=== PATIENT | male | born 1970 | race Caucasian/White ===

== ENCOUNTER → 2018-07-01 10:08 | Outpatient (CLI) | payer BC, SELFPAY ==
[2018-07-01 11:26] LABS: Ferritin 70 ng/mL (26-388); T4 Free Direct 0.82 ng/dL (0.76-1.46); Thyroid Stim Hormone (TSH) 1.28 uIU/mL (0.358-3.74)
[2018-07-01 11:37] LABS: Vitamin D,25 Hydroxy 81.7 ng/mL (29.95-100.01)
== END ==
PROVIDERS: Family Provider Family Medicine; PCP Family Medicine; Referring Provider Family Medicine; Visit Provider Family Medicine
DX: E03.9 Hypothyroidism, unspecified (principal); E55.9 Vitamin D deficiency, unspecified
CPT/HCPCS: 36415; 82306; 82728; 84439; 84443

== ENCOUNTER → 2019-03-23 09:30 | Outpatient (CLI) | payer BC, SELFPAY ==
[2019-03-23 10:18] LABS: Hematocrit 46.6 % (40-54); Hemoglobin 15.9 g/dL (13.0-16.5); Mean Corp Hgb Conc 34.1 g/dL (32-36); Mean Corpuscular Hgb 31.7 pg (27.0-32.0); Mean Corpuscular Volume 92.8 fL (80-94); Mean Platelet Vol. 9.2 fl (6.2-12.0); Platelet Count 185 K/mm3 (150-450); RBC Distribution Width CV 12.4 % (11.6-14.6); RBC Distribution Width SD 42.5 fl (35.1-43.9); Red Blood Count 5.02 M/mm3 (4.6-6.2); White Blood Count 5.4 K/mm3 (4.4-11.0)
[2019-03-23 11:06] LABS: ALB/GLOB Ratio 1.3 RATIO (0.9-2.4); AST(SGOT) 16 U/L (15-37); Alanine Aminotransfer ALT/SGPT 26 U/L (16-61); Albumin, Serum 3.9 g/dL (3.2-5.0); Alkaline Phosphatase 67 U/L (45-117); Anion Gap 3 (5-15); BUN 18 mg/dL (7-18); BUN/Creat Ratio 18.2 RATIO (10-20); Calcium,Total 9.3 mg/dL (8.5-10.1); Chloride 108 mmol/L (98-107); Creatinine, Serum 0.99 mg/dL (0.70-1.30); EST Glomerular Filtration Rate 85 mL/min (>60); Est Glom Filt Rate - Afr Amer 103 mL/min (>60); Free T3 2.4 pg/mL (2.18-3.98); Globulin 3.1 g/dL (2.2-4.2); Glucose 91 mg/dL (74-106); Potassium 3.9 mmol/L (3.5-5.1); Sodium Level 140 mmol/L (136-145); T4 Free Direct 0.79 ng/dL (0.76-1.46); Thyroid Stim Hormone (TSH) 1.29 uIU/mL (0.358-3.74)
== END ==
PROVIDERS: Family Provider Family Medicine; PCP Family Medicine; Referring Provider Family Medicine; Visit Provider Family Medicine
DX: R55 Syncope and collapse (principal)
CPT/HCPCS: 36415; 80053; 83735; 84439; 84443; 84481; 85027

== ENCOUNTER → 2019-04-09 07:23 | Outpatient (CLI) | payer BC, SELFPAY ==
--- NOTE | 2019-04-09 15:33 | EEG ---
- Electroencephalogram Date of service 04/09/2019 History EEG is being done in this 48 yr M to rule out seizures EEG Description: This is an 18 channel EEG with 10-20 lead placement system. Bipolar montages, and Referential montages were reviewed. Photic stimulation and Hyperventilation were performed. The posterior dominant rhythm is 10 HZ synchronous, symmetric, reacting to eye opening and closing. Photo stimulation elicited normal driving response but no abnormal photoparoxysmal response, Hyperventilation did not elicit any abnormal photoparoxysmal response. Sleep was identified. There is no abnormal background slowing noted. There was no epileptiform discharges or electrographic seizures noted during this recording. EEG Interpretation This is a normal awake and asleep EEG. There is no epileptiform discharges or electrographic seizures noted during the record.
== END ==
PROVIDERS: Family Provider Family Medicine; PCP Family Medicine; Referring Provider Family Medicine; Visit Provider Family Medicine
DX: R55 Syncope and collapse (principal)
CPT/HCPCS: 95819

== ENCOUNTER → 2019-07-12 13:39 | Outpatient (CLI) | payer BC, SELFPAY ==
[2019-07-12 14:45] LABS: Absolute Lymphocyte Count 1.71 X10^3/uL (0.83-4.51); Absolute Neutrophil Count 3.8 X10^3/uL (2.0-7.7); Basophil# 0.05 X10^3/uL; Basophil% 0.8 % (0-1); Eosinophil# 0.11 X10^3/uL; Eosinophils% 1.8 % (0-5); Hematocrit 48.4 % (40-54); Hemoglobin 16.1 g/dL (13.0-16.5); Lymphocyte # 1.71 X10^3/ul (4.0); Lymphocyte % 27.8 % (19-41); Mean Corp Hgb Conc 33.3 g/dL (32-36); Mean Corpuscular Hgb 31.3 pg (27.0-32.0); Monocyte# 0.48 X10^3/uL; Monocyte% 7.8 % (0-10); NRBC Flagged by Analyzer 0 % (0-5); Neutrophil # 3.79 X10^3/uL (2.7-7.7); Neutrophil % 61.5 % (47-70); Platelet Count 203 K/mm3 (150-450); RBC Distribution Width CV 12.5 % (11.6-14.6); RBC Distribution Width SD 43.8 fl (35.1-43.9); Red Blood Count 5.15 M/mm3 (4.6-6.2); White Blood Count 6.2 K/mm3 (4.4-11.0)
[2019-07-12 15:41] LABS: ALB/GLOB Ratio 1.4 RATIO (0.9-2.4); AST(SGOT) 11 U/L (15-37); Alanine Aminotransfer ALT/SGPT 27 U/L (16-61); Albumin, Serum 4.2 g/dL (3.2-5.0); Alkaline Phosphatase 73 U/L (45-117); Anion Gap 6 (5-15); BUN 11 mg/dL (7-18); BUN/Creat Ratio 12.4 RATIO (10-20); Calcium,Total 9.1 mg/dL (8.5-10.1); Chloride 106 mmol/L (98-107); Cholesterol 237 mg/dL (200); Creatinine, Serum 0.89 mg/dL (0.70-1.30); EST Glomerular Filtration Rate 96 mL/min (>60); Est Glom Filt Rate - Afr Amer 116 mL/min (>60); Free T3 2.7 pg/mL (2.18-3.98); Glucose 83 mg/dL (74-106); High Density Lipoprotein 34 mg/dL; Magnesium 2.1 mg/dL (1.6-2.6); Potassium 3.9 mmol/L (3.5-5.1); Protein, Total 7.2 g/dL (6.4-8.2); Sodium Level 141 mmol/L (136-145); T4 Free Direct 1.07 ng/dL (0.76-1.46); Thyroid Stim Hormone (TSH) 3.66 uIU/mL (0.358-3.74); Triglycerides 257 mg/dL; Very Low Density Lipoprotein 51 mg/dL (5-40)
[2019-07-16 20:13] LABS: Anti-Thyroglobulin AB < 1.0 IU/mL (0.0-0.9); Thyroid Peroxidase AB 13 IU/mL (0-34)
== END ==
PROVIDERS: Family Provider Family Medicine; PCP Family Medicine; Referring Provider Family Medicine; Visit Provider Family Medicine
DX: E03.9 Hypothyroidism, unspecified (principal); I20.1 Angina pectoris with documented spasm
CPT/HCPCS: 36415; 80053; 80061; 83735; 84432; 84439; 84443; 84481; 85025; 86376; 86800

== ENCOUNTER → 2019-08-21 06:20 | Outpatient (CLI) | payer BC, SELFPAY ==
[2019-08-21 08:23] LABS: Thyroid Stim Hormone (TSH) 3.63 uIU/mL (0.358-3.74)
== END ==
PROVIDERS: Family Provider Family Medicine; PCP Family Medicine; Referring Provider Family Medicine; Visit Provider Family Medicine
DX: E03.9 Hypothyroidism, unspecified (principal)
CPT/HCPCS: 36415; 84443

== ENCOUNTER → 2021-03-27 08:06 | Outpatient (CLI) | payer BC, SELFPAY ==
[2021-03-27 08:44] LABS: Absolute Lymphocyte Count 1.54 X10^3/uL (0.83-4.51); Absolute Neutrophil Count 2.5 X10^3/uL (2.0-7.7); Basophil# 0.04 X10^3/uL; Basophil% 0.9 % (0-1); Eosinophil# 0.08 X10^3/uL; Eosinophils% 1.8 % (0-5); Hematocrit 46.9 % (40-54); Hemoglobin 15.8 g/dL (13.0-16.5); Lymphocyte # 1.54 X10^3/ul (0.83-4.51); Lymphocyte % 34.3 % (19-41); Mean Corp Hgb Conc 33.7 g/dL (32-36); Mean Corpuscular Volume 92.1 fL (80-94); Mean Platelet Vol. 9.1 fl (6.2-12.0); Monocyte# 0.33 X10^3/uL; Monocyte% 7.3 % (0-10); NRBC Flagged by Analyzer 0 % (0-5); Neutrophil % 55.7 % (47-70); Platelet Count 194 K/mm3 (150-450); RBC Distribution Width CV 12.6 % (11.6-14.6); RBC Distribution Width SD 42.9 fl (35.1-43.9); Red Blood Count 5.09 M/mm3 (4.6-6.2); White Blood Count 4.5 K/mm3 (4.4-11.0)
[2021-03-27 09:01] LABS: Fibrinogen 289 mg/dl (203-444)
[2021-03-27 09:11] LABS: Insulin 6.1 mU/L (2.6-37.6); T3 Total - Triiodothyronine 0.79 ng/mL (0.6-1.81); Vitamin B12 549 pg/mL (211-911)
[2021-03-27 09:14] LABS: Hemoglobin A1c 5.2 % (3.8-5.6)
[2021-03-27 09:47] LABS: Homocysteine 10.2 umol/L (3.2-10.7)
[2021-03-27 09:54] LABS: ALB/GLOB Ratio 1.3 RATIO (0.9-2.4); AST(SGOT) 20 U/L (15-37); Alanine Aminotransfer ALT/SGPT 47 U/L (16-61); Albumin, Serum 3.9 g/dL (3.2-5.0); Alkaline Phosphatase 83 U/L (45-117); Anion Gap 5 (5-15); BUN 19 mg/dL (7-18); BUN/Creat Ratio 21.1 RATIO (10-20); CRP < 2.90 mg/L (0.0-3.0); Calcium,Total 8.6 mg/dL (8.5-10.1); Chloride 107 mmol/L (98-107); EST Glomerular Filtration Rate 94 mL/min (>60); Est Glom Filt Rate - Afr Amer 114 mL/min (>60); Free T3 2.2 pg/mL (2.18-3.98); Globulin 2.9 g/dL (2.2-4.2); Glucose 98 mg/dL (74-106); Protein, Total 6.8 g/dL (6.4-8.2); Sodium Level 141 mmol/L (136-145); T4 Free Direct 0.97 ng/dL (0.76-1.46); T4 Total, Thyroxin 7.2 ug/dL (4.5-12.1); Thyroid Stim Hormone (TSH) 2.55 uIU/mL (0.358-3.74)
[2021-03-31 13:40] LABS: T3 Reverse 23.6 ng/dL (9.2-24.1); Thyroglobulin Antibody < 1.0 IU/mL (0.0-0.9); Thyroid Peroxidase AB 11 IU/mL (0-34)
== END ==
PROVIDERS: PCP Family Medicine
DX: E03.9 Hypothyroidism, unspecified (principal); I20.1 Angina pectoris with documented spasm; E88.81 Metabolic syndrome and other insulin resistance; E78.5 Hyperlipidemia, unspecified; G47.00 Insomnia, unspecified
CPT/HCPCS: 36415; 80053; 80061; 82306; 82607; 82746; 83036; 83090; 83525; 83704; 83921; 84436; 84439; 84443; 84480; 84481; 84482; 85025; 85384; 86140; 86376; 86800

== ENCOUNTER → 2021-04-11 06:54 | Outpatient (CLI) | payer BC, SELFPAY ==
[2021-04-11 07:57] LABS: AST(SGOT) 17 U/L (15-37); Alanine Aminotransfer ALT/SGPT 37 U/L (16-61); GGTP 19 U/L (15-85); LDH 112 U/L (87-241)
== END ==
PROVIDERS: PCP Family Medicine
DX: E78.2 Mixed hyperlipidemia (principal); I20.1 Angina pectoris with documented spasm; R94.5 Abnormal results of liver function studies
CPT/HCPCS: 36415; 82977; 83615; 84450; 84460

== ENCOUNTER → 2023-01-27 | Outpatient (CLI) | payer BC, SELFPAY ==
[2023-01-27 16:14] LABS: Creatinine, Serum 0.96 mg/dL (0.70-1.30); EST Glomerular Filtration Rate 87 mL/min (>60); Est Glom Filt Rate - Afr Amer 106 mL/min (>60); Thyroid Stim Hormone (TSH) 2.88 uIU/mL (0.358-3.74)
== END | disposition home or self-care (01) ==
LOC: LAB 14:24
PROVIDERS: PCP Family Medicine; Visit Provider Family Medicine
DX: E03.9 Hypothyroidism, unspecified (principal); I20.1 Angina pectoris with documented spasm
CPT/HCPCS: 36415; 82565; 84439; 84443

== ENCOUNTER → 2023-07-27 | Outpatient (CLI) | payer BC, SELFPAY ==
--- NOTE | 2023-07-27 07:57 | CDU_ITS ---
Reason For Study: ANGINA PECTORIS W/documented spasm Rt. Velocities/BP Lt. Velocities/BP Prox CCA 100.2/24.1 cm/sec. Prox CCA 139.9/26.7 cm/sec. Mid CCA 108.8/24.1 cm/sec. Mid CCA 97.9/30.3 cm/sec. Dist CCA 105.1/29.0 cm/sec. Dist CCA 94.2/28.5 cm/sec. Prox ICA 87.9/30.2 cm/sec. Prox ICA 57.4/16.4 cm/sec. Mid ICA 80.6/14.2 cm/sec. Mid ICA 84.4/32.2 cm/sec. Dist ICA 80.6/14.2 cm/sec. Dist ICA 50.8/21.6 cm/sec. Rt. ICA/CCA = 87.9/108.8=0.8. Lt. ICA/CCA = 84.4/97.9=0.9. Prox ECA 100.2/13.0 cm/sec. Prox ECA 60.0/12.7 cm/sec. Rt. Vert. 31.2/11.5 cm/sec. Lt. Vert. 50.4/21.9 cm/sec. Right Extracranial There is no significant atherosclerotic plaque noted in the right common carotid artery. There is intimal thickening but no significant atherosclerotic plaque noted in the right internal carotid artery. There is no significant atherosclerotic plaque noted in the right external carotid artery. Antegrade flow is noted in the right vertebral artery. Left Extracranial There is intimal thickening but no significant atherosclerotic plaque noted in the left common carotid artery. There is intimal thickening but no significant atherosclerotic plaque noted in the left internal carotid artery. There is homogeneous, smooth atherosclerotic plaque noted in the left external carotid artery. Antegrade flow is noted in the left vertebral artery. Procedure Carotid Duplex [id number]. This is a Carotid Duplex examination using B-mode, color flow and specral Doppler. The study was technically difficult. Due to HIGH BIFURCATION. Exam performed in department. VL/Carotid Duplex Ultrasound Interpretation Summary No significant atherosclerotic plaque or stenosis noted in the internal carotid arteries bilaterally. Flow within the vertebral arteries is antegrade bilaterally. Ordering Physician: Zulma Fernandez Referring Physician: Se Long Performed By: Domi Silva, GAGE, RVT
== END | disposition home or self-care (01) ==
LOC: CVS 07:56
PROVIDERS: PCP Family Medicine; Referring Provider Nurse Practitioner Family; Visit Provider Nurse Practitioner Family
DX: I20.1 Angina pectoris with documented spasm (principal)
CPT/HCPCS: 93880

== ENCOUNTER → 2024-09-06 | Outpatient (CLI) | payer BC, SELFPAY ==
[2024-09-06 10:57] LABS: Bacteria 0 SEEN /hpf (None Seen); Mucous, Urine 0 SEEN /hpf (<or=2+); Red Blood Cells-Urine 0 SEEN /hpf (0-5); Squamous Epithelial Cells - UA 0 SEEN /hpf (0-5); White Blood Cells 0 SEEN /hpf (0-5)
[2024-09-06 12:49] LABS: Syphilis Antibodies Non-reactive
[2024-09-06 13:02] LABS: Color, Urine Yellow (Yellow); Glucose, Dipstick Normal (Normal); Ketone-Dipstick Negative (Negative); Leukocyte Esterase-Dipstick 25 /ul (Negative); Nitrite-Dipstick Negative (Negative); Occult Blood-Urine Negative /ul (Negative); Protein-Dipstick 15 mg/dl (Negative); Specific Gravity, Urine 1.015 (1.002-1.030); Urine Bilirubin Dipstick Negative (Negative); Urine Clarity Clear (Clear); Urine Urobilinogen Normal (Normal)
[2024-09-07 12:08] LABS: ANTINUCLEAR ANTIBODIES DIRECT Negative (Negative)
[2024-09-07 14:08] LABS: Lyme Scn Total Ab w/Rflx Negative (Negative)
== END | disposition home or self-care (01) ==
LOC: MFPLAB 10:47
PROVIDERS: PCP Family Medicine; Referring Provider Family Medicine; Visit Provider Family Medicine
DX: L50.9 Urticaria, unspecified (principal)
CPT/HCPCS: 36415; 81001; 86038; 86140; 86618; 86780; 87086

== ENCOUNTER 2025-01-06 22:59 | Observation (INO) | payer BC, SELFPAY ==
[2025-01-06] VITALS (10 sets, daily range): BP systolic 109–131; BP diastolic 75–108; PULSE 56–67; RESP 13–26; TEMP 36.6; O2SAT 90–100; BMI 34.0
--- NOTE | 2025-01-06 23:09 | EKG12_ITS ---
Test Reason : CP Blood Pressure : */* mmHG Vent. Rate : 58 BPM Atrial Rate : 58 BPM P-R Int : 140 ms QRS Dur : 84 ms QT Int : 412 ms P-R-T Axes : 5 -11 51 degrees QTcB Int : 404 ms Sinus bradycardia Minimal voltage criteria for LVH, may be normal variant ( R in aVL ) Nonspecific ST abnormality Abnormal ECG Confirmed by Vladimir Bianchi ([id number]), web content editor GRAY OTTO ([id number]) on 01/07/2025 9:25:56 AM Referred By: BB Confirmed By: Vladimir Bianchi
[2025-01-06 23:18] LABS: Absolute Lymphocyte Count 3.69 X10^3/uL (0.83-4.51); Absolute Neutrophil Count 3.3 X10^3/uL (2.0-7.7); Basophil# 0.08 X10^3/uL; Eosinophil# 0.26 X10^3/uL; Eosinophils% 3.2 % (0-5); Hematocrit 47.3 % (40-54); Hemoglobin 16.1 g/dL (13.0-16.5); Lymphocyte # 3.69 X10^3/ul (0.83-4.51); Lymphocyte % 45.4 % (19-41); Mean Corpuscular Hgb 30.8 pg (27.0-32.0); Mean Corpuscular Volume 90.4 fL (80-94); Mean Platelet Vol. 9.3 fl (6.2-12.0); Monocyte# 0.78 X10^3/uL; Monocyte% 9.6 % (0-10); NRBC Flagged by Analyzer 0 % (0-5); Neutrophil % 40.6 % (47-70); Platelet Count 235 K/mm3 (150-450); RBC Distribution Width CV 12.8 % (11.6-14.6); RBC Distribution Width SD 42.2 fl (35.1-43.9); Red Blood Count 5.23 M/mm3 (4.6-6.2); White Blood Count 8.1 K/mm3 (4.4-11.0)
--- NOTE | 2025-01-06 23:19 | ED.VIS.CHEST ---
HPI History of Present Illness Chief Complaint: Chest Pain Informant: patient and spouse/S.O. Onset/Context/Timing Onset: Today Activity at onset: gradual and rest Timing: Continuous Quality: Positive for Heaviness and Pain Location: Substernal Current Severity: Mild Maximum Severity: Severe Worsened By: Nothing Relieved By: NTG Associated Symptoms: Positive for Nausea, Diaphoresis and Palpitations Narrative Narrative: 54-year-old male history of Prinzmetal's angina. Heart cath in 2010 he states was clean. Most recent heart cath in 2018 only a 10% blockage in the right coronary. He states she has had 3 episodes of chest pain in the last 2 weeks first 1 to 2 weeks ago when that bad it was at rest second 1 a week ago lasted about 40 minutes and was more severe and then tonight he has had severe chest pain lasting over an hour. He took 4 baby aspirin at home. 3 sublingual nitro with only mild to moderate improvement. He still having pain. He did get diaphoretic. He is nauseated. A week ago he had nausea and vomiting. Denies any exertional dyspnea or exertional chest pain. Said on his heart cath in 2018 they did find minor cardiac damage. No history of DVT or PE. No leg pain or swelling. No recent travel, surgery or immobilization. No back pain. Prior Similar Symptoms: Yes Recent Illness/Hospitalization: No CVD Risk Factors: Negative for Hypertension, Diabetes, Hypercholesterolemia, Family History 1' </=55 or Smoking PE Risk Factors: Negative for Recent Travel/Surgery, Recent Immobilization, Prior DVT or PE, Cancer or OCP + Smoking + >/=35 TAD Risk Factors: Negative for Marfan's Syndrome [facility] Medical History (Updated 01/07/25 @ 01:[address] Chad Lr MD) History of stress test Chest pain Irregular heart beat Coronary artery disease Wears hearing aid in both ears Hearing loss Prinzmetal angina Hypothyroidism Home Medications ?Medication ?Instructions ?Recorded ?Last Taken ?Type nitroglycerin 0.4 mg sublingual 0.4 mg sublingual Q5M PRN angina 01/06/25 Unknown History tablet Allergy/AdvReac Type Severity Reaction Status Date / Time No Known Allergies Allergy Verified 01/06/25 23:04 Surgical History (Updated 01/06/25 @ 23:37 by Racquel Long) H/O cardiac catheterization Social History Smoking Status: Never smoker ROS ROS ED ROS Narrative Chest pain at rest. Nausea. Diaphoresis. Constitutional Constitutional ED: Denies chills or fever(s) ENT ENT ED: Denies ear pain Cardiovascular Cardiovascular: Reports as per HPI, chest pain and palpitations Respiratory/Chest Respiratory/Chest: Reports dyspnea; Denies cough Gastrointestinal Gastrointestinal: Reports nausea and vomiting; Denies abdominal pain, constipation, diarrhea or melena Genitourinary Genitourinary ED: Denies dysuria or hematuria Musculoskeletal Musculoskeletal: Denies arthralgias Integumentary Denies abscess Neurologic Neurologic: Denies headache(s) Psychiatric Psychiatric: Denies anxiety Endocrine Endocrinology: Denies cold intolerance Hematologic/Lymphatic Hematologic/Lymphatic: Denies easy bleeding, easy bruising or lymphadenopathy Allergic/Immunologic Allergic/Immunologic ED: Denies tongue swelling or urticaria EXAM Physical Exam Narrative Exam Narrative: 54-year-old male vital signs are stable afebrile. He does not look septic or toxic. His pulses are present on room air no hypoxia. Initial blood pressure 124/108. He does not look septic or toxic. He is diaphoretic. He still having pain. H EENT exam pupils round reactive light. moist mucous membranes. Neck nontender no JVD. Lungs clear to auscultation bilaterally. Heart regular rhythm rate about 60 no murmur. Chest wall and ribs no reproducible pain. No ecchymosis or bruising. No subcu air or crepitus. Abdomen soft nontender. No peritoneal signs. No pulsatile mass. Moving all 4 extremities. 5 out of 5 director behavioral health strength. Equal symmetrical radial pulses. Dorsi plantarflexion intact. Calves are nontender without edema or cords. Neurologically is awake and alert. Answering questions following commands. Skin no rashes but he is diaphoretic. Const Vital Signs: 01/06/25 22:59 01/06/25 23:09 01/06/25 23:10 Temperature 97.8 F Temperature Source Oral Pulse Rate 57 L 59 L Respiratory Rate 22 H 17 Blood Pressure 124/108 H 114/91 H Blood Pressure Mean 113 98 Pulse Ox 100 94 Oxygen Delivery Method Room Air Room Air Room Air Oxygen Flow Rate (L/min) 01/06/25 23:25 01/06/25 23:31 01/06/25 23:33 Temperature Temperature Source Pulse Rate 56 L 67 Respiratory Rate Blood Pressure 131/88 H 127/89 H Blood Pressure Mean Pulse Ox 90 Oxygen Delivery Method Room Air Oxygen Flow Rate (L/min) 01/06/25 23:33 01/06/25 23:37 01/06/25 23:40 Temperature Temperature Source Pulse Rate 62 62 Respiratory Rate 26 H Blood Pressure 120/77 Blood Pressure Mean Pulse Ox 93 92 Oxygen Delivery Method Nasal Cannula Oxygen Flow Rate (L/min) 2 01/06/25 23:45 01/06/25 23:53 01/06/25 23:53 Temperature Temperature Source Pulse Rate 64 59 L 58 L Respiratory Rate 16 20 H Blood Pressure 112/85 H 109/75 109/75 Blood Pressure Mean 93 85 Pulse Ox 91 95 Oxygen Delivery Method Nasal Cannula Oxygen Flow Rate (L/min) 2 01/06/25 23:56 01/07/25 00:00 01/07/25 00:10 Temperature Temperature Source Pulse Rate 61 56 L 56 L Respiratory Rate 13 24 H 19 H Blood Pressure 110/81 H 107/81 H 106/68 Blood Pressure Mean 90 88 80 Pulse Ox 94 93 95 Oxygen Delivery Method Nasal Cannula Nasal Cannula Oxygen Flow Rate (L/min) 2 2 01/07/25 00:20 Temperature Temperature Source Pulse Rate 61 Respiratory Rate 27 H Blood Pressure 107/80 Blood Pressure Mean 89 Pulse Ox 96 Oxygen Delivery Method Room Air Oxygen Flow Rate (L/min) Positive well nourished and well developed; Negative for cachectic, contractures or unkempt General Appearance ED: well developed and NAD; Negative for unkempt, cachectic, contractures or pallor Nutritional Appearance: Negative for cachectic HEENT Reports moist mucous membranes normocephalic and atraumatic Eyes PERRL and EOMs intact bilaterally General Eye ED: Negative for pale conjunctiva or scleral icterus Neck no lymphadenopathy, supple and no JVD Chest Wall inspection of chest normal and palpation of chest normal Resp normal respiratory effort and clear to auscultation bilaterally Cardio regular rate, regular rhythm, S1 normal heart sound, S2 normal heart sound and no murmurs Peripheral Pulses: pulses 2+ throughout GI normal to inspection, nondistended, normoactive bowel sounds, soft to palpation, non-tender, non-distended and no masses Back/Spine no CVA tenderness and no thoracic nor lumbar tenderness Extremity normal to inspection General Extremety ED: Negative for edema, pulses abnormal or tenderness General Extremity: Negative for edema or pulses abnormal Neuro oriented x3, CN's II-XII intact bilaterally and no sensory deficits noted Sensorium / Orientation: awake, alert, oriented to person, oriented to place and oriented to time; Negative for confused, lethargic or stuporous Motor Exam: strength 5/5 throughout Psych mental status grossly normal Appearance: Negative for unkempt Attitude: No agitated Mood & Affect: Negative for depressed, anxious or tearful Skin no rashes or lesions noted and no wounds Skin Narrative: Cool and diaphoretic. Pale. General Skin Exam: Negative for jaundice or pallor Rashes: No rashes noted Trauma: Negative for abrasion or laceration Heart Score History: Moderately Suspicious ECG: Normal Age: >45 - <65 years Risk Factors: 1 or 2 Risk Factors Troponin: </= Normal Limit Score: 3 MDM MDM MDM Narrative Medical decision making narrative: 54-year-old male history of Prinzmetal angina. Admitting worsening symptoms over the last 3 weeks. Always at rest. Most recent heart cath was 7+ years ago at 10% right coronary disease. He did take 3 nitroglycerin at home and 4 baby aspirin but he said his nitro was 3+ years old. He will be given nitroglycerin here. Cardiac workup. Also be given Toradol for pain. I was then giving morphine but he says with opioids his pressure drops into the 80s. Repeat exam around 23:40 PM he said the initial sublingual nitro x 3 improved his pain but is now back at a 6 out of 10. He has been given Nitropaste. Second EKG will be obtained. Repeat exam at 12:24 AM. Patient states his pain is waxing and waning. We went over his initial labs. We are awaiting a second EKG and 2-hour troponin we will go from there. He will be given small dose of fentanyl for his pain. Repeat exam patient is doing well at 1:15 AM. Second troponin returns less than 6 also. 2 troponins and 2 EKGs are negative. Repeat exam after discussing with the patient and his given his accelerating chest pain in frequency and intensity over the last 3 weeks they prefer admission for further cardiac testing I will discuss that with the hospitalist. History & Record Review Discussion w/independent historian: Patient and Family Additional record(s) reviewed:: Prior inpatient record, Prior outpatient record, Prior ED visit and Prior labs Lab Data Attestation: I reviewed the patient's lab results. Lab results narrative: CBC shows a white count 8. H&H is 16 and 47. Platelets 235. Chemistries unremarkable gap 15. BUN and creatinine 21 and 1. Glucose 114. Initial troponin less than 6. 2-hour troponin less than 6 also. Labs: Laboratory Results - last 24 hr 01/06/25 01/06/25 01/07/25 22:50 23:07 00:43 WBC 8.1 RBC 5.23 Hgb 16.1 Hct 47.3 MCV 90.4 MCH 30.8 MCHC 34.0 RDW Std Deviation 42.2 RDW Coeff of Fernando 12.8 Plt Count 235 MPV 9.3 Immature Gran % (Auto) 0.200 Neut % (Auto) 40.6 L Lymph % (Auto) 45.4 H Taliaferro % (Auto) 9.6 Eos % (Auto) 3.2 Baso % (Auto) 1.0 Absolute Neuts (auto) 3.3 Absolute Lymphs (auto) 3.69 Nucleated RBC % 0 Sodium 140 Potassium 3.7 Chloride 101 Carbon Dioxide 24.2 Anion Gap 15 BUN 21 H Creatinine 1.04 Estim Creat Clear Calc 98.49 Est GFR (MDRD) Non-Af 85 BUN/Creatinine Ratio 20.2 H Glucose 114 H Calcium 9.6 Troponin T High Sens < 6 Troponin T Hi Sens 2 Hr < 6 POC Glucose 122 H Radiography Chest X-Ray - ED: 1 View, Read by ED Physician, Read by Radiologist, Heart, Lungs, Mediastinum, Bony Structures, No Acute Disease and Chronic Changes Diagnostic Testing: Clinical Impression(s) from Imaging Studies Chest X-Ray 01/06/25 23:20 IMPRESSION: No Acute Findings. Reading Location: [facility] Chest x-ray, portable, single view, interpreted by myself and radiologist. Shows normal cardiac silhouette. Normal mediastinum. Normal lung yeager. Chronic changes. No acute process. Rhythm Strip Rhythm Strip: Sinus Rhythm Rate: 58 Ectopy: None EKG Initial EKG: Attestation: I personally reviewed and interpreted this EKG as follows: Interpretation: Sinus Bradycardia Comments: Sinus bradycardia rate of 58 no acute signs of IL or ischemia. Follow-up EKG: Attestation: I personally reviewed and interpreted this EKG as follows: Interpretation: No Acute Injury Pattern and Sinus Bradycardia Comments: Repeat EKG at 12:30 AM. Shows again sinus bradycardia rate of 57. No acute signs of IL or ischemia. No significant change from the initial EKG done earlier tonight. Discharge Plan Triage Chief Complaint: Chest Pain ED Provider: Chad Lr Dx/Rx/DC Orders Clinical Impression: Chest pain, History of Prinzmetal angina Instructions: ED Chest Pain, Uncertain Cause Prescriptions: No Action nitroglycerin 0.4 mg tablet, sublingual 0.4 mg sublingual Q5M PRN (Reason: angina) Primary Care Provider: Se Long Referrals: Se Long MD [Primary Care Provider] - As soon as possible Print Language: Greenlandic Disposition Disposition: Acute Care [facility]
--- NOTE | 2025-01-06 23:20 | RAD_ITS ---
PROCEDURE: CHEST 1 VIEW (PORTABLE) 01/06/2025 REASON FOR EXAM: CHEST PAIN TECHNIQUE: Frontal view of the chest. COMPARISON: None FINDINGS: Hardware: None Heart: Cardiac and mediastinal contours are stable. Lungs: No focal consolidation. No pneumothorax. No pleural effusion. Bones: The bones are unremarkable. Other: RAD/Chest 1 View (Portable) IMPRESSION: No Acute Findings. Reading Location: [facility]
[2025-01-06 23:25] LABS: Bedside Glucose 122 mg/dL (74-106)
[2025-01-06] MEDS: Ketorolac 30 MG/ML Syringe IV (23:25)
[2025-01-06] MEDS: Nitroglycerin SL (ED/IMG/CATH) 0.4 MG TABLET SL ×3 (23:25→23:37)
--- NOTE | 2025-01-06 23:47 | EKG12_ITS ---
Test Reason : CP Blood Pressure : */* mmHG Vent. Rate : 57 BPM Atrial Rate : 57 BPM P-R Int : 150 ms QRS Dur : 84 ms QT Int : 430 ms P-R-T Axes : 40 -13 30 degrees QTcB Int : 418 ms Sinus bradycardia Nonspecific T wave abnormality Abnormal ECG Confirmed by Vladimir Bianchi ([id number]), design editor GRAY OTTO ([id number]) on 01/07/2025 9:26:07 AM Referred By: TRISTAN Confirmed By: Vladimir Bianchi
[2025-01-06 23:49] LABS: Troponin T High Sensitivity < 6 ng/L (<=22)
[2025-01-06 23:52] LABS: Anion Gap 15 (5-15); BUN 21 mg/dL (4-19); BUN/Creat Ratio 20.2 RATIO (10-20); Calcium,Total 9.6 mg/dL (7.6-11.0); Carbon Dioxide 24.2 mmol/L (21.0-32.0); Chloride 101 mmol/L (98-108); Creatinine, Serum 1.04 mg/dL (0.70-1.20); EST Glomerular Filtration Rate 85 (>60); Estimated Creatinine Clearance 98.49 ml/min (50-250); Glucose 114 mg/dL (70-99); Potassium 3.7 mmol/L (3.3-5.1); Sodium Level 140 mmol/L (133-145)
[2025-01-06] MEDS: Nitroglycerin Oint 1 INCH PACKET TD (23:53)
[2025-01-07] VITALS (14 sets, daily range): BP systolic 95–132; BP diastolic 62–88; PULSE 53–77; RESP 10–27; TEMP 36.4–36.6; O2SAT 92–97; BMI 33.3
[2025-01-07] MEDS: fentaNYL 100 MCG/2 ML Ampul 25 MCG IV ×4 (00:31→13:30)
[2025-01-07 01:12] LABS: Troponin T High Sens 2 HR < 6 ng/L (<=22)
--- NOTE | 2025-01-07 01:27 | PCM.HP.STD ---
[facility] - General General Date of Admission: 01/07/25 Date of Service: 01/07/25 Chief Complaint: Chest Pain, Nausea, Vomiting and Diaphoresis. [facility] Narrative ANDRE NEVES, is a 54 M with a past medical history of obesity; with BMI of 34 this admission, positive family history of premature coronary artery disease in his father with an severe DC at age 51, Prinzmetal's angina; with history of treatment failure on amlodipine (severe edema/malaise) and diltiazem (lethargy/edema) on prn sublingual NTG, history of negative LHC (2010), history of repeat heart catheterization in 2018 that apparently revealed non-flow limiting lesions with ~10% blockage in the RCA, history of irregular heart beat, history of hypothyroidism; currently not on treatment and history of hearing loss; with chronic use of hearing aids previously treated with Maxzide (with patient stating he developed his Prinzmetal's angina after exposure to this agent) with who presents to [facility] complaining of chest pain. Mr. Neves reports his symptoms began ~2 weeks prior to admission with 3 episodes of chest pain with the first episode of angina ~2 weeks ago with chest pain that began at rest, with substernal, pressure-like and resolved after SL NTG. Then ~1 week ago he had a second episode with angina that began at rest and lasted approximately 40 minutes with associated nausea and bilious emesis but then resolved so he did not seek medical attention at that time. Then on the evening of January 06, 2025 he developed his most severe episode of angina also began at rest and lasting ~2 hours that with substernal, heavy, pressure-like with a [id number] nature going from mild to severe and seemed to be made worse by nothing but was only moderate improved after 3 SL NTG and 4 baby aspirin at home so he finally decided to come in for further evaluation and treatment. He admits to associated diaphoresis, palpitations and nausea with shortness of breath with ~3/10 chest pain after being treated with fentanyl IV in the ER. He denies exertional component to chest pain, fever, chills, visual changes, abdominal pain, constipation, diarrhea, dysuria, hematuria, arthralgias, myalgias, headache, rash, recent trauma, recent overexertion or recent medication changes. In the ER he was noted to have 2 serial troponin T levels of less than 6 ng/L with normal vital signs and otherwise unremarkable laboratory studies and he was then admitted to the PCU under observation status for a stay that is expected to be less than 2 midnights. [facility] Medical History (Updated 01/07/25 @ 03:[address] Balbir Murrieta DO) Inguinal hernia History of stress test Chest pain Irregular heart beat Coronary artery disease Wears hearing aid in both ears Hearing loss Prinzmetal angina Hypothyroidism Home Medications ?Medication ?Instructions ?Recorded ?Last Taken ?Type nitroglycerin 0.4 mg sublingual 0.4 mg sublingual Q5M PRN angina 01/06/25 01/06/25 10:30 History tablet arginine (L-arginine) 700 mg 700 mg PO DAILY 01/07/25 01/06/25 10:15 History capsule Allergy/AdvReac Type Severity Reaction Status Date / Time amlodipine AdvReac Severe severe Verified 01/07/25 02:40 edema diltiazem AdvReac lethargy/ed Verified 01/07/25 02:40 rachana Surgical History (Updated 01/07/25 @ 02:48 by Faith Martínez) H/O rhinoplasty H/O cardiac catheterization Social History Smoking Status: Never smoker ROS ROS Narrative Review of Systems: Constitutional: Patient denies fever or chills. Eyes: Patient denies changes in vision or discharge from eyes. ENT: Patient denies runny nose, sore throat or ear pain. Resp: Patient admits to shortness of breath but he denies cough. CV: Patient admits to chest pain and palpitations as per HPI. GI: Patient admits to nausea and vomiting with bilious emesis. He denies abdominal pain, constipation or diarrhea. : Patient denies dysuria hematuria. MSK: Patient denies arthralgias or myalgias. Skin: Patient denies rash, abscess, wounds or jaundice. Psych: Patient denies symptoms of uncontrolled depression or anxiety. Neuro: Patient denies headache, paresthesias or focal neurologic deficits. Allergy: Patient denies lip swelling, tongue swelling or urticaria. Hematology: Patient denies easy bleeding or easy bruisability. Endocrinology: Patient denies polyuria, polydipsia, polyphagia or heat/cold intolerance. 14 point ROS otherwise negative except for positives noted above in HPI. Vital Signs Vital Signs Vital Signs: 01/06/25 22:59 01/06/25 23:09 01/06/25 23:10 Temperature 97.8 F Temperature Source Oral Pulse Rate 57 L 59 L Respiratory Rate 22 H 17 Blood Pressure 124/108 H 114/91 H Blood Pressure Mean 113 98 Pulse Ox 100 94 Oxygen Delivery Method Room Air Room Air Room Air Oxygen Flow Rate (L/min) 01/06/25 23:25 01/06/25 23:31 01/06/25 23:33 Temperature Temperature Source Pulse Rate 56 L 67 Respiratory Rate Blood Pressure 131/88 H 127/89 H Blood Pressure Mean Pulse Ox 90 Oxygen Delivery Method Room Air Oxygen Flow Rate (L/min) 01/06/25 23:33 01/06/25 23:37 01/06/25 23:40 Temperature Temperature Source Pulse Rate 62 62 Respiratory Rate 26 H Blood Pressure 120/77 Blood Pressure Mean Pulse Ox 93 92 Oxygen Delivery Method Nasal Cannula Oxygen Flow Rate (L/min) 2 01/06/25 23:45 01/06/25 23:53 01/06/25 23:53 Temperature Temperature Source Pulse Rate 64 59 L 58 L Respiratory Rate 16 20 H Blood Pressure 112/85 H 109/75 109/75 Blood Pressure Mean 93 85 Pulse Ox 91 95 Oxygen Delivery Method Nasal Cannula Oxygen Flow Rate (L/min) 2 01/06/25 23:56 01/07/25 00:00 01/07/25 00:10 Temperature Temperature Source Pulse Rate 61 56 L 56 L Respiratory Rate 13 24 H 19 H Blood Pressure 110/81 H 107/81 H 106/68 Blood Pressure Mean 90 88 80 Pulse Ox 94 93 95 Oxygen Delivery Method Nasal Cannula Nasal Cannula Oxygen Flow Rate (L/min) 2 2 01/07/25 00:20 01/07/25 00:30 01/07/25 00:40 Temperature Temperature Source Pulse Rate 61 53 L 56 L Respiratory Rate 27 H 22 H 15 Blood Pressure 107/80 111/77 95/62 Blood Pressure Mean 89 88 74 Pulse Ox 96 97 95 Oxygen Delivery Method Room Air Oxygen Flow Rate (L/min) 01/07/25 01:22 01/07/25 01:24 Temperature 97.8 F Temperature Source Pulse Rate 62 62 Respiratory Rate 10 L 17 Blood Pressure 105/67 105/67 Blood Pressure Mean 79 79 Pulse Ox 97 95 Oxygen Delivery Method Room Air Oxygen Flow Rate (L/min) Weight Weight: 236 lb 12.423 oz Body Mass Index (BMI) 34.0 Physical Exam Const alert, oriented x3 and no apparent distress Constitutional Narrative: Obese and nontoxic in appearance. General Appearance: cooperative HEENT normocephalic, head/scalp atraumatic, hearing grossly normal bilaterally and moist oral mucous membranes Eyes PERRL, EOMs intact bilaterally and conjunctivae normal Neck no lymphadenopathy, supple and no JVD Resp normal respiratory effort, no retractions, no use of accessory muscles and clear to auscultation bilaterally Cardio regular rate and regular rhythm GI normal to inspection, nondistended, normoactive bowel sounds, soft to palpation, non-tender and non-distended GI Narrative: Obese. Extremity normal to inspection, full ROM and no clubbing, cyanosis or edema Skin Skin Narrative: Patient is evidence of rash, abscess, wounds or jaundice. Neuro oriented x3, CN's II-XII intact bilaterally, moves all extremities and no focal motor deficits Sensorium / Orientation: awake, alert, oriented to person, oriented to place and oriented to time Speech: speech normal Psych affect normal Results Medical Records Data Attestation: I reviewed the patient's medical records Lab / Micro Data Attestation: I reviewed the patient's lab results. 01/06/25 22:50 01/06/25 22:50 Labs: Laboratory Results - last 24 hr 01/06/25 22:50: WBC 8.1, RBC 5.23, Hgb 16.1, Hct 47.3, MCV 90.4, MCH 30.8, MCHC 34.0, RDW Std Deviation 42.2, RDW Coeff of Fernando 12.8, Plt Count 235, MPV 9.3, Immature Gran % (Auto) 0.200, Neut % (Auto) 40.6 L, Lymph % (Auto) 45.4 H, [place] % (Auto) 9.6, Eos % (Auto) 3.2, Baso % (Auto) 1.0, Absolute Neuts (auto) 3.3, Absolute Lymphs (auto) 3.69, Nucleated RBC % 0, Sodium 140, Potassium 3.7, Chloride 101, Carbon Dioxide 24.2, Anion Gap 15, BUN 21 H, Creatinine 1.04, Estim Creat Clear Calc 98.49, Est GFR (MDRD) Non-Af 85, BUN/Creatinine Ratio 20.2 H, Glucose 114 H, Calcium 9.6, Troponin T High Sens < 6 01/06/25 23:07: POC Glucose 122 H 01/07/25 00:43: Troponin T Hi Sens 2 Hr < 6 Rhythm Strip Rhythm Strip: Sinus Rhythm Rate: 58 Ectopy: None Imaging Radiology Impression Chest X-Ray 01/06/25 23:20 IMPRESSION: No Acute Findings. [facility] Assessment & Plan Assessment/Plan (1) History of Prinzmetal angina: (2) Accelerating angina: (3) Diaphoresis: (4) Palpitations: (5) Nausea & vomiting: QUALIFIERS: Vomiting type: bilious vomiting Qualified Code(s): R11.14 - Bilious vomiting (6) Obesity (BMI 30.0-34.9): (7) Family history of coronary artery disease in father: PLAN: Plan 1. Accelerated Angina in the setting of previously known Prinzmetal's angina; on prn sublingual NTG history of negative LHC (2010), history of repeat heart catheterization in 2018 that apparently revealed non-flow limiting lesions with ~10% blockage in the RCA - Admit to PCU under observation status. Serialize troponin. Check echocardiogram to evaluate LVEF. Check Lexiscan NST in AM to evaluate for underlying ischemia. Give acetaminophen as needed for [id number] (level 1-5/10) pain or fever. Give fentanyl IV as needed for severe (level 6-10/10) pain after he said morphine was not working with his reports of pain out of proportion to his physical findings.. Finally, we will consult [facility] to see this patient on rounds in the a.m. for further recommendations regarding optimizing treatment for his Prinzmetal's angina with help appreciated in advance. 2. Diaphoresis with Palpitations, Nausea and Vomiting with bilious emesis due to #1 - Give ondansetron IV as needed for nausea and vomiting. Give promethazine IM as needed for breakthrough nausea. 3. Obesity (Class I); with BMI of 34 this admission adding to the burden of disease outlined in #1 & #2 - Weight loss will be recommended. Check TSH. This complicates his case and may hamper recovery. 4. History of irregular heart beat - Noted with patient currently in NSR. 5. Positive family history of premature CAD in his father at age 51 - Noted. 6. History of hypothyroidism; currently not on treatment - Check TSH. 7. History of hearing loss; with chronic use of hearing aids - Stable. 8. DVT prophylaxis - Enoxaparin 40 mg sq daily. Total time: Approximately (but not less than) 70 minutes. Charges/Coding Visit Charges OBSV E&M: 88651 Observ/hosp same date L2
--- NOTE | 2025-01-07 02:04 | ECHOD_ITS ---
Reason For Study Reason For Study: CHEST PAIN Procedure This was a 2D Doppler, Color Flow transthoracic echocardiogram. Exam performed in department. Left Ventricle Normal LV size. Left ventricular systolic function is normal. The left ventricular ejection fraction is 55 %. Stage 1 diastolic dysfunction. No regional wall motion abnormalities noted. Right Ventricle Normal RV size. Normal systolic function. Tricuspid Valve Normal tricuspid valve. Mild tricuspid valve insufficiency. Pulmonary artery systolic pressure is 25 mmHg. Pulmonic Valve Normal pulmonic valve. Great Vessels Normal aortic root. The pulmonary artery is normal size. Inferior vena cava collapse with respiration. Pericardium/Pleural No pericardial effusion. MMode/2D Measurements & Calculations LVIDd: 5.3 cm IVSd: 0.85 cm Ao root diam: 3.4 cm LVIDs: 3.7 cm LVPWd: 1.0 cm RVDd: 3.7 cm FS: 30.3 % LAV(MOD-bp): 46.5 ml SV(MOD-sp4): 79.4 ml LVAd ap4: 40.8 cm2 LAV(MOD-bp) Indexed: 21.2 ml/m2 LVLd ap4: 9.7 cm SI(MOD-sp4): 36.2 ml/m2 LAV(MOD-sp2): 44.7 ml EDV(MOD-sp4): 142.6 ml LAV(MOD-sp4): 46.3 ml EDV(sp4-el): 145.0 ml LVAs ap4: 25.0 cm2 LVLs ap4: 8.2 cm ESV(MOD-sp4): 63.2 ml ESV(sp4-el): 64.3 ml EF(MOD-sp4): 55.7 % EF(sp4-el): 55.6 % SV(sp4-el): 80.6 ml LA A4 area: 18.4 cm2 LA dimension(2D): 3.5 cm TAPSE: 2.3 cm RA A4 area: 17.3 cm2 Time Measurements MV dec time: 0.20 sec Doppler Measurements & Calculations MV E max jose: 60.4 cm/sec Lat Peak E' Jose: 14.5 cm/sec Med Peak E' Jose: 9.7 cm/sec MV A max jose: 94.1 cm/sec E/E' lat: 4.2 E/E' med: 6.3 MV E/A: 0.64 Ao V2 max: 149.1 cm/sec LV V1 max: 94.0 cm/sec PA V2 max: 108.1 cm/sec Ao max P.9 mmHg LV V1 max P.5 mmHg TR max jose: 232.0 cm/sec TR max P.5 mmHg ECHO/Echo Complete Interpretation Summary Normal LV size. Left ventricular systolic function is normal. The left ventricular ejection fraction is 55 %. Stage 1 diastolic dysfunction. Structurally normal valves. Ordering Physician: OLINDA BALLARD Referring Physician: RUBA CLARKE Performed By: Luz Maria Chaudhari RDCS
--- NOTE | 2025-01-07 02:36 | NURSING ---
Nitro paste removed at this time in preparation for stress test. Dr. Murrieta notified.
[2025-01-07 02:43] LABS: D-Dimer Quantitative (DVT/PE) 0.27 FEU/ug/m (0.27-0.49)
[2025-01-07] MEDS: Morphine 2 MG/ML Syringe IV (03:27)
[2025-01-07 03:28] LABS: Troponin T High Sens 4 HR < 6 ng/L (<=22)
[2025-01-07] MEDS: 0.9% Saline Lock 10 ML Syringe IV ×6 (03:28→13:29)
[2025-01-07] MEDS: 0.9% Normal Saline (1000mL) 1,000 ML 70 ML IV (03:28)
[2025-01-07 03:29] LABS: Alcohol, Blood (Medical)-Serum < 10.1 mg/dL (<=10.0)
[2025-01-07] MEDS: Acetaminophen 325 MG Tablet 650 MG PO (04:16)
[2025-01-07] MEDS: Ondansetron 4 MG/2 ML Vial IV ×2 (04:17→11:55)
[2025-01-07 04:43] LABS: Hemoglobin A1c 5.6 % (<=5.6)
--- NOTE | 2025-01-07 04:53 | EKG12_ITS ---
Test Reason : CP Blood Pressure : */* mmHG Vent. Rate : 54 BPM Atrial Rate : 54 BPM P-R Int : 148 ms QRS Dur : 86 ms QT Int : 436 ms P-R-T Axes : 33 -11 4 degrees QTcB Int : 413 ms Sinus bradycardia Otherwise normal ECG When compared with ECG of 07-Jan-2025 00:30, MANUAL COMPARISON REQUIRED DATA IS UNCONFIRMED Confirmed by Vladimir Bianchi ([id number]), editor managing newspaper GRAY OTTO ([id number]) on 01/07/2025 11:54:00 AM Referred By: Confirmed By: Vladimir Bianchi
[2025-01-07] MEDS: Aspirin E.C. 81 MG Tablet PO (05:04)
[2025-01-07 06:54] LABS: Cholesterol 242 mg/dL (<=200); High Density Lipoprotein 42 mg/dL; Low Density Lipoprotein Calc. 164 mg/dL; Triglycerides 182 mg/dL; Very Low Density Lipoprotein 36 mg/dL (5-40); cholesterol:hdl ratio screen 5.82
--- NOTE | 2025-01-07 08:09 | PCM.PN.HOSP ---
Reason for Visit Reason for Visit: Diagnoses Obesity, class 1 (01/07/25) Unstable angina (01/07/25) Palpitations (01/07/25) Bilious vomiting (01/07/25) Nausea with vomiting, unspecified (01/07/25) Generalized hyperhidrosis (01/07/25) Family history of ischemic heart disease and other diseases of the circulatory system (01/07/25) Personal history of other diseases of the circulatory system (01/07/25) Subjective Subjective Pain went from his chest to his abdomen. IV fentanyl not working. Asks if he can have IV lorazepam because that is what helped after he had a rhinoplasty. Objective Data Objective Data Vital Signs: Vital Signs Temp Pulse Resp BP Pulse Ox O2 Del Method O2 Flow Rate 36.6 C 54 L 16 123/86 H 95 Room Air 2 01/07/25 04:35 01/07/25 04:35 01/07/25 04:35 01/07/25 04:35 01/07/25 04:35 01/07/25 04:35 01/07/25 00:10 Oxygen Flow Rate (L/min) 2 Oxygen Delivery Method Room Air Weight: 102.2 kg Body Mass Index (BMI) 33.3 Intake & Output: Intake and Output for Last 24 Hours 01/05/25 01/06/25 01/07/25 23:59 23:59 23:59 Intake Total 0 / 0 Balance 0 / 0 Lab / Micro Data 01/06/25 22:50 01/06/25 22:50 Labs: Laboratory Results - last 24 hr 01/06/25 22:50: WBC 8.1, RBC 5.23, Hgb 16.1, Hct 47.3, MCV 90.4, MCH 30.8, MCHC 34.0, RDW Std Deviation 42.2, RDW Coeff of Fernando 12.8, Plt Count 235, MPV 9.3, Immature Gran % (Auto) 0.200, Neut % (Auto) 40.6 L, Lymph % (Auto) 45.4 H, [place] % (Auto) 9.6, Eos % (Auto) 3.2, Baso % (Auto) 1.0, Absolute Neuts (auto) 3.3, Absolute Lymphs (auto) 3.69, Nucleated RBC % 0, D-Dimer Quant (PE/DVT) 0.27, Sodium 140, Potassium 3.7, Chloride 101, Carbon Dioxide 24.2, Anion Gap 15, BUN 21 H, Creatinine 1.04, Estim Creat Clear Calc 98.49, Est GFR (MDRD) Non-Af 85, BUN/Creatinine Ratio 20.2 H, Glucose 114 H, Calcium 9.6, Troponin T High Sens < 6 01/06/25 23:07: POC Glucose 122 H 01/07/25 00:43: Troponin T Hi Sens 2 Hr < 6 01/07/25 02:52: Hemoglobin A1c 5.6, Troponin T Hi Sens 4Hr < 6, Triglycerides 182, Cholesterol 242 H, LDL Cholesterol, Calc 164, VLDL Cholesterol 36, HDL Cholesterol 42, Cholesterol/HDL Ratio 5.82, TSH 4.220 H, Ethyl Alcohol < 10.1 Radiography Diagnostic Testing: Radiology Impression Chest X-Ray 01/06/25 23:20 IMPRESSION: No Acute Findings. Reading [facility] [place] [facility] [place] Rhythm Strip Rhythm Strip: Sinus Rhythm Rate: 58 Ectopy: None Physical Exam Const Constitutional Narrative: Surrounded by 2 women in his room. One who is very doting of him. HEENT head/scalp atraumatic and moist oral mucous membranes Resp normal respiratory effort, no retractions, no use of accessory muscles and clear to auscultation bilaterally Cardio regular rate, regular rhythm, S1 normal heart sound and S2 normal heart sound GI GI Narrative: no reproducible abdominal pain when distracted. Tenses up his abdomen when I manually palpate. Extremity normal to inspection Neuro Sensorium / Orientation: awake and alert Assessment & Plan Assessment/Plan (1) Chest pain: PLAN: work up thus far negative. still having chest pain. Previous work up has been negative. ARMANI Bianchi. follow up stress test. PLAN: Plan Abdominal pain: complains of severe pain, but exam is unremarkable, but he tenses up his abdomen when I palpate. Will check AXR. Pt concerned about a UTI, but denies dysuria. States that he had a urinalysis, but I told him he actually had a UDS. Will check UA. He said he has had 2 UTIs as an adult and had UTIs as a child. There is a lack of significant exam findings, attempting to manipulate exam findings on exam by tensing up his abdomen. I reviewed [facility] and was unable to find any additional records outside this admission and some labs. Charges/Coding Visit Charges Inpatient E&M: 25549 Subs Hosp L2
--- NOTE | 2025-01-07 09:20 | CON.PCM.CA_ITS ---
Assessment & Plan Assessment/Plan (1) Chest pain: QUALIFIERS: Chest pain type: precordial pain Qualified Code(s): R 07.2 - Precordial pain PLAN: The patient is chest discomfort is atypical. It always occurs at rest and seems to be better with activity. The patient's ECG showed no acute ischemic changes, his cardiac isoenzymes are less than 6 on 3 separate occasions. The patient's symptoms appear to be associated with nausea and vomiting on this admission. In the past they have responded to drinking cold water and taking a sublingual nitro. The patient did require fentanyl on this admission to get him pain-free. Currently the patient is complaining of chest discomfort we are giving him sublingual nitro, placing an inch of nitroglycerin paste and will add Ranexa 500 mg twice daily which he has never trialed. He does carry a history of Prinzmetal's angina diagnosed in 2010. He had minimal coronary artery disease only a 10% stenosis on a repeat cath 2018 at [facility]. Will plan on a nuclear treadmill stress test today. If there is evidence or suggestions of ischemia would recommend repeat left heart catheterization. If the nuclear treadmill stress test is negative for ischemia would recommend GI evaluation. PLAN: Plan 1. Treadmill nuclear stress test today. 2. Will add Ranexa 500 mg twice daily to the patient's medical regimen. 3. Will add nitroglycerin paste 1 inch topically every 6 hours. If the patient develops headaches would recommend discontinuing it. 4. Consider GI evaluation for this what appears to be noncardiac chest pain if the stress test is negative. HPI Consult Data Date of Consult: 01/07/25 HPI Narrative Reason for Consultation: Chest pain HPI Narrative: ANDRE ESPARZA, is a 54 M who presents with a 3-week history of increasing chest discomfort. He has had 2 or 3 episodes over the last 3 weeks where they last 40 minutes to 2 to 3 hours. He carries a history of Prinzmetal's angina from a cath 2010 and a subsequent cath in 2018 at [facility]. The second cath showed a 10% stenosis in the right coronary otherwise was unremarkable. The patient reports that he had some type of wall motion abnormality by his memory from the 2018 cath. I do not have a copy of that cath report. The patient presented emergency department with ongoing severe chest discomfort nausea and vomiting and diaphoresis. His cardiac enzymes were less than 6 on 3 separate sets. His ECG showed no acute ischemic changes. His pain was relieved with sublingual nitro and fentanyl. Patient complains of a recurrence of his symptoms in the hospital here. He reports that is better when he is up walking in the halls. The patient also reports that these episodes of discomfort over the years seem to come on after a prolonged stressful situation that is resolving. And this is similar to what happened this time for the last several months he has been under intense pressure at work. In that was relieved over the last 3 weeks. The patient is intolerant of all statin therapy. He is been on Imdur in the past which created severe ongoing longstanding migraine headaches. He has utilized sublingual nitro in his home environment and also drinking cold water. He had multiple eructations while I was examining him. But he denies this in the home environment. The patient is never had a GI evaluation to his knowledge. The patient does have a family history of coronary artery disease. The patient does have elevated cholesterol 268 total and his LDL is in 164 range. The patient is never smoked he is not hypertensive and he is not diabetic. [facility] Medical History Inguinal hernia History of stress test Chest pain Irregular heart beat Coronary artery disease Wears hearing aid in both ears Hearing loss Prinzmetal angina Hypothyroidism Home Medications ?Medication ?Instructions ?Recorded ?Last Taken ?Type nitroglycerin 0.4 mg sublingual 0.4 mg sublingual Q5M PRN angina 01/06/25 01/06/25 10:30 History tablet arginine (L-arginine) 700 mg 700 mg PO DAILY 01/07/25 01/06/25 10:15 History capsule Allergy/AdvReac Type Severity Reaction Status Date / Time amlodipine AdvReac Severe severe Verified 01/07/25 02:40 edema diltiazem AdvReac lethargy/ed Verified 01/07/25 02:40 rachana Surgical History H/O rhinoplasty H/O cardiac catheterization Social History Smoking Status: Never smoker ROS Constitutional Constitutional: Reports as per HPI Eyes Eyes: Reports systems reviewed and no addt'l complaints, except as documented ENT HEENT: Reports systems reviewed and no addt'l complaints, except as documented Cardiovascular Cardiovascular: Reports as per HPI Respiratory/Chest Respiratory/Chest: Reports as per HPI Gastrointestinal Gastrointestinal: Reports as per HPI Genitourinary Genitourinary: Reports systems reviewed and no addt'l complaints, except as documented Musculoskeletal Musculoskeletal: Reports systems reviewed and no addt'l complaints, except as documented Integumentary Integumentary: Reports systems reviewed and no addt'l complaints, except as documented Neurologic Neurologic: Reports systems reviewed and no addt'l complaints, except as documented Psychiatric Psychiatric: Reports systems reviewed and no addt'l complaints, except as documented Endocrine Endocrinology: Reports as per HPI Hematologic/Lymphatic Hematologic/Lymphatic: Reports systems reviewed and no addt'l complaints, except as documented Allergic/Immunologic Allergic/Immunologic: Reports as per HPI Physical Exam Const alert and oriented x3 HEENT normocephalic Eyes EOMs intact bilaterally Chest inspection of chest normal Resp normal respiratory effort and clear to auscultation bilaterally Cardio Rate: regular rate Rhythm: regular rhythm Heart Sounds: S1 normal and S2 normal; Negative for click, gallop or murmur GI soft to palpation Extremity no pedal edema Neuro Neuro Narrative: Alert and oriented x 3 Psych mental status grossly normal Risk Stratification Risk Stratification Applicable: Yes Age >/= 65: No >/= 3 CAD Risk Factors (HTN, HLD, DM, family hx of CAD, or current smoker): No Aspirin Use in the Past 7 Days: No Severe Angina (>/= episodes in 24 hours): Yes EKG ST Changes >/= 0.5mm: No Positive Cardiac Marker: No YANCI Risk Stratification Score: 1 YANCI % Risk: 5% Risk Charges/Coding Visit Charges Inpatient E&M: 29593 Init Hosp L2 Objective Data Vital Signs: Vital Signs Temp Pulse Resp BP Pulse Ox O2 Del Method O2 Flow Rate 97.9 F 54 L 16 123/86 H 95 Room Air 2 01/07/25 04:35 01/07/25 04:35 01/07/25 04:35 01/07/25 04:35 01/07/25 04:35 01/07/25 04:35 01/07/25 00:10 Oxygen Flow Rate (L/min) 2 Oxygen Delivery Method Room Air Weight: 225 lb 4.999 oz Body Mass Index (BMI) 33.3 Intake & Output: Intake and Output for Last 24 Hours 01/05/25 01/06/25 01/07/25 23:59 23:59 23:59 Intake Total 0 / 0 Balance 0 / 0 Lab / Micro Data Attestation: I reviewed the patient's lab results. 01/06/25 22:50 01/06/25 22:50 Labs: Laboratory Results - last 24 hr 01/06/25 22:50: WBC 8.1, RBC 5.23, Hgb 16.1, Hct 47.3, MCV 90.4, MCH 30.8, MCHC 34.0, RDW Std Deviation 42.2, RDW Coeff of Fernando 12.8, Plt Count 235, MPV 9.3, Immature Gran % (Auto) 0.200, Neut % (Auto) 40.6 L, Lymph % (Auto) 45.4 H, Bertie % (Auto) 9.6, Eos % (Auto) 3.2, Baso % (Auto) 1.0, Absolute Neuts (auto) 3.3, Absolute Lymphs (auto) 3.69, Nucleated RBC % 0, D-Dimer Quant (PE/DVT) 0.27, Sodium 140, Potassium 3.7, Chloride 101, Carbon Dioxide 24.2, Anion Gap 15, BUN 21 H, Creatinine 1.04, Estim Creat Clear Calc 98.49, Est GFR (MDRD) Non-Af 85, B UN/Creatinine Ratio 20.2 H, Glucose 114 H, Calcium 9.6, Troponin T High Sens < 6 01/06/25 23:07: POC Glucose 122 H 01/07/25 00:43: Troponin T Hi Sens 2 Hr < 6 01/07/25 02:52: Hemoglobin A1c 5.6, Troponin T Hi Sens 4Hr < 6, Triglycerides 182, Cholesterol 242 H, LDL Cholesterol, Calc 164, VLDL Cholesterol 36, HDL Cholesterol 42, Cholesterol/HDL Ratio 5.82, TSH 4.220 H, Ethyl Alcohol < 10.1 Rhythm Strip Rhythm Strip: Sinus Rhythm Rate: 58 Ectopy: None Cardiology Labs/Tests 01/06/25 22:50: WBC 8.1, RBC 5.23, Hgb 16.1, Hct 47.3, MCV 90.4, MCH 30.8, MCHC 34.0, Plt Count 235, MPV 9.3, Immature Gran % (Auto) 0.200, Neut % (Auto) 40.6 L , Lymph % (Auto) 45.4 H, Bertie % (Auto) 9.6, Eos % (Auto) 3.2, Baso % (Auto) 1.0, Absolute Neuts (auto) 3.3, Nucleated RBC % 0, D-Dimer Quant (PE/DVT) 0.27, Sodium 140, Potassium 3.7, Chloride 101, Carbon Dioxide 24.2, Anion Gap 15, BUN 21 H, Creatinine 1.04, Est GFR (MDRD) Non-Af 85, BUN/Creatinine Ratio 20.2 H, G lucose 114 H, Calcium 9.6 01/07/25 02:52: Hemoglobin A1c 5.6, Triglycerides 182, Cholesterol 242 H, VLDL Cholesterol 36, HDL Cholesterol 42, Cholesterol/HDL Ratio 5.82 Rhythm: EKG: ECHO: Stress Test: Cardiac Cath: PCI: CT Surgery: Holter monitor: EPS: PPM: CXR: Chest CT Scan: Radiography Diagnostic Testing: Radiology Impression Chest X-Ray 01/06/25 23:20 IMPRESSION: No Acute Findings. Reading [facility]
[2025-01-07] MEDS: Nitroglycerin Oint 1 INCH PACKET TD ×2 (09:25→12:15)
[2025-01-07] MEDS: Ranolazine 500 MG Tablet PO (09:25)
[2025-01-07] MEDS: proMETHazine 25 MG/ML Syringe 12.5 MG IM (13:30)
[2025-01-07 14:13] LABS: Amphetamine Urine NEGATIVE (<1000 ng/mL); Barbiturate Urine NEGATIVE (< 200 ng/mL); Benzodiazepine Urine NEGATIVE (< 200 ng/mL); Buprenorphine Urine NEGATIVE (< 200 ng/mL); Cocaine Urine NEGATIVE (< 300 ng/mL); Fentanyl, Urine PRESUMPTIVE POSITIVE; Methadone Urine NEGATIVE (< 300 ng/mL); Opiates Urine PRESUMPTIVE POSITIVE (< 300 ng/mL); Oxycodone, Urine NEGATIVE (< 100 ng/mL); PCP Urine NEGATIVE (< 25 ng/mL); THC Urine NEGATIVE (< 50 ng/mL)
[2025-01-07 15:32] LABS: Bacteria 0 SEEN /hpf (None Seen); Mucous, Urine 0 SEEN /hpf (<or=2+)
--- NOTE | 2025-01-07 15:44 | STRESSREP ---
Stress Test Report Exercise myocardial perfusion stress test. 54-year-old man with a history of chest pain Stress protocol: Resting EKG demonstrates normal sinus rhythm with a rate of 68 bpm resting blood pressure is 118/78 mmHg. The patient exercised according to the regular Jordon protocol for a total duration of 7 minutes attaining a maximum heart rate of 133 bpm which was 80% of maximum predicted heart rate; the maximum workload was 10.1 metabolic equivalents. At rest there were no ST or T wave changes noted to suggest ischemia and at peak exercise upsloping ST changes only were noted which did not meet the criteria for ischemia. The patient did complain of chest discomfort throughout the test of questionable significance. The test was terminated due to fatigue. Rate-pressure product was [26,200]. Myocardial perfusion protocol. 13.8 mCi of technetium 99m sestamibi was injected at rest. The patient exercised according to regular Jordon protocol for total duration of 7 minutes and at peak exercise 44 point mCi of technetium 99m sestamibi was injected stress images were obtained stress and rest images were reconstructed in comparing the short axis vertical long and horizontal long axis. Gated images were also obtained. Perfusion SPECT analysis: Review of the stress images demonstrate normal uptake of tracer noted in all areas of the myocardium. The resting images similarly demonstrate normal uptake of tracer noted in all areas of the myocardium. No areas of reversibility are noted to suggest ischemia no previous infarct was noted. Gated SPECT analysis: The gated ejection fraction is 49%. Conclusion: Normal exercise myocardial perfusion stress test at a high workload Preserved ejection fraction.
--- NOTE | 2025-01-07 15:45 | RAD_ITS ---
EXAM: XR Abdomen, 1 View CLINICAL INDICATION: ABDOMINAL PAIN TECHNIQUE: Frontal supine view of the abdomen/pelvis. COMPARISON: No relevant prior studies available. FINDINGS: GASTROINTESTINAL TRACT: Fecal retention in the colon consistent with constipation. No dilation. BONES/JOINTS: Unremarkable. No acute fracture. RAD/Abdomen Single View (Portable) IMPRESSION: Fecal retention in the colon consistent with constipation. Reading Location: [id number]
[2025-01-07] MEDS: Acetaminophen 500 MG Tablet 1000 MG PO (16:42)
--- NOTE | 2025-01-07 16:49 | PCM.DC.SUM ---
Providers Date of Admission: 01/07/25 Primary Care Physician: Dr. Se Long MD Consultations 01/07/25 02:04 Consult: Cardiology Routine Consulting Provider: [facility] Reason for Consult: Accelerating angina with history of Prinzmetal's angina. EMERGENT Consult: No MD Notified: Yes Date Notified: 01/07/25 Time Notified: 08:09 Method of Notification: Text Method of Consult:: In-Person Reason For Visit: ACCELERATED ANGINA WITH CHRONIC PRINZMETAL'S Diagnosis Discharge Diagnosis (1) Chest pain: Status: Acute Code(s): R07.9 - Chest pain, unspecified Qualifiers: Chest pain type: precordial pain Qualified Code(s): R07.2 - Precordial pain Plan: troponins negative. stress test negative. Pt states that he has had previously normal heart catheterizations and has the diagnosis of Prinzmetal angina. No additional work up. Chest pain radiates per his description. Such that earlier today he told me he was not having chest pain, but rather abdominal pain. Later, he was complaining of chest pain. Etiology could be GI-related. Will have him on PPI and bentyl. Recommend follow up with gastroenterology. Plan Abdominal pain: complains of severe pain, but exam is unremarkable, but he tenses up his abdomen when I palpate. Will check AXR. Pt concerned about a UTI, but denies dysuria. States that he had a urinalysis, but I told him he actually had a UDS. Will check UA. He said he has had 2 UTIs as an adult and had UTIs as a child. There is a lack of significant exam findings, attempting to manipulate exam findings on exam by tensing up his abdomen. I reviewed [facility] and was unable to find any additional records outside this admission and some labs. No medication history on OARRS. Medications at Discharge Home Medications nitroglycerin 0.4 mg sublingual tablet 0.4 mg sublingual Q5M PRN angina 01/06/25 acetaminophen 500 mg tablet 1,000 mg (2 x 500 mg) PO Q8 PRN pain #0 tabs 01/07/25 arginine (L-arginine) 700 mg capsule 700 mg PO DAILY 01/07/25 dicyclomine 10 mg capsule 10 mg PO TID PRN abdominal pain #30 caps 05/12/25 ondansetron HCl 8 mg tablet 8 mg PO Q8H PRN Nausea And Vomiting 3 days #9 tabs 01/07/25 pantoprazole 40 mg tablet,delayed release 40 mg PO DAILY #30 tabs 01/07/25 Hospital Course Operations None Procedures Stress test Summary of Care Provided Minutes Spent on Discharge: 35 Hospital Course: Patient presents with chest pain, nausea and vomiting. Patient had reported history of Prinzmetal angina. Patient was seen by cardiology and patient did undergo a stress test. Stress test was normal. Patient's chest pain did resolve when to come back later. Along with that he was complaining of abdominal pain. On exam he would tense up his abdomen when I attempt to palpate but, with distraction I was able to press and deeply with the scope without reproducible pain. Most surely his pain was out of proportion to exam despite him complaining of severe pain. Patient was on fentanyl and he said that that was not working for him and I actually discontinue the narcotics altogether given the absence of any significant clinical findings. Did do an abdominal x-ray and on my review was rather unremarkable with with exception of some stool in the ascending colon. Patient inquired about his urinalysis. I found that odd for layperson to use the word urinalysis. He actually did not have a urinalysis initially had a urine drug screen was positive for opiates and fentanyl. He did request a urinalysis which I did performed and those results are currently pending but he is not having any symptoms. If that is abnormal for an infection we will give him antibiotics but the plan is still to discharge him home. I am just concerned about malingering. I reviewed through [facility] and could not find any previous documentations other than some labs prior to this hospitalization. And his OARRS was clean. I did find it odd that the patient took time to address his pronouns. Most patients that I encounter in the hospital do not even address their pronouns but he adjusted his pronouns, to likely reflect his political ideology, and those pronouns are Trump/[place]/2023. Weight / BMI Weight Weight: 102.2 kg Body Mass Index (BMI) 33.3 ABG / Lab / Microbiology Data 01/06/25 22:50 01/06/25 22:50 Laboratory: Laboratory Results - last 24 hr 01/06/25 22:50: WBC 8.1, RBC 5.23, Hgb 16.1, Hct 47.3, MCV 90.4, MCH 30.8, MCHC 34.0, RDW Std Deviation 42.2, RDW Coeff of Fernando 12.8, Plt Count 235, MPV 9.3, Immature Gran % (Auto) 0.200, Neut % (Auto) 40.6 L, Lymph % (Auto) 45.4 H, Allen % (Auto) 9.6, Eos % (Auto) 3.2, Baso % (Auto) 1.0, Absolute Neuts (auto) 3.3, Absolute Lymphs (auto) 3.69, Nucleated RBC % 0, D-Dimer Quant (PE/DVT) 0.27, Sodium 140, Potassium 3.7, Chloride 101, Carbon Dioxide 24.2, Anion Gap 15, BUN 21 H, Creatinine 1.04, Estim Creat Clear Calc 98.49, Est GFR (MDRD) Non-Af 85, BUN/Creatinine Ratio 20.2 H, Glucose 114 H, Calcium 9.6, Troponin T High Sens < 6 01/06/25 23:07: POC Glucose 122 H 01/07/25 00:43: Troponin T Hi Sens 2 Hr < 6 01/07/25 02:52: Hemoglobin A1c 5.6, Troponin T Hi Sens 4Hr < 6, Triglycerides 182, Cholesterol 242 H, LDL Cholesterol, Calc 164, VLDL Cholesterol 36, HDL Cholesterol 42, Cholesterol/HDL Ratio 5.82, TSH 4.220 H, Ethyl Alcohol < 10.1 01/07/25 13:30: Urine Opiates Screen PRESUMPTIVE POSITIVE, U Buprenorphine Qual NEGATIVE, Ur Oxycodone Screen NEGATIVE, Urine Methadone Screen NEGATIVE, Urine Fentanyl Screen PRESUMPTIVE POSITIVE, Ur Barbiturates Screen NEGATIVE, Ur Phencyclidine Scrn NEGATIVE, Ur Amphetamines Screen NEGATIVE, U Benzodiazepines Scrn NEGATIVE, Urine Cocaine Screen NEGATIVE, U Cannabinoids Screen NEGATIVE Radiography Diagnostic Testing: Radiology Impression Chest X-Ray 01/06/25 23:20 IMPRESSION: No Acute Findings. Reading Location: [facility] Instructions Discharge Diet: No restrictions DC O2, CPAP, BIPAP Needs Home O2 Discharge instructions: No Meaningful Use Info Meaningful Use Meaningful Use Diagnoses (Choose all that apply): None applicable Ischemic Stroke Statin Dosing Therapy Reference: STATIN DOSE THERAPY REFERENCE: * Patients > 75 years receive moderate or high dose statin therapy. * Patients 75 years or YOUNGER should receive HIGH intensity statin dose unless contraindicated. You will be required to document reason for non-treatment if statin daily dose does not meet guidelines. HIGH DOSE STATIN THERAPY DAILY Atorvastatin > than or = to 40 mg Rosuvastatin > than or = to 20 mg Amlodipine + Atorvastatin > than or = to 2.5/40 mg Ezetimibe + Simvastatin 10/80 mg Simvastatin 80mg Discharge Plan Admission Admit Date/Time: 01/07/25 01:51 Primary Reason for Your Visit: chest and abdominal pain. Attending Provider: Se Carrion Primary Care Provider: Se Long Consulting Providers: Balbir Murrieta; Belinda Guerrero; Jazz Brooks; Ivan Parrish; Jose Armendariz; Adrián Lyons; Fernando Ashley; Amandeep Marmolejo; Vladimir Bianchi; Doug Michele; Trip Palomares; Steven Mancilla; Wilfrido Waller NP; Funmilayo Gomez PA; George Cruz Instructions Patient Instructions: ED Chest Pain, Uncertain Cause Additional Instructions / Restrictions: Your workup from chest pain and abdominal pain was unremarkable. He may have some spasms within your abdomen and esophagus. I will have you take pantoprazole to help with reflux and Bentyl to help with abdominal spasms. Would recommend that you follow-up with gastroenterology for further evaluation of this pain. Discharge Orders/Prescriptions Prescriptions: New acetaminophen 500 mg Tablet 1,000 mg PO Q8 PRN (Reason: pain) Qty: 0 0RF pantoprazole 40 mg tablet,delayed release (DR/EC) 40 mg PO DAILY Qty: 30 0RF dicyclomine 10 mg capsule 10 mg PO TID PRN (Reason: abdominal pain) Qty: 30 0RF ondansetron HCl 8 mg tablet 8 mg PO Q8H PRN (Reason: Nausea And Vomiting) 3 Days Qty: 9 0RF Continued nitroglycerin 0.4 mg tablet, sublingual 0.4 mg sublingual Q5M PRN (Reason: angina) No Action arginine (L-arginine) 700 mg capsule 700 mg PO DAILY Rx Instructions: administer after a meal Referrals / Follow Up: Se Long MD [Primary Care Provider] - As soon as possible [facility] [Provider Group] - Within 1 Month (abdominal pain. ) Disposition Disposition (needs filled in before D/C Order can be placed): Home, Self Care Charges/Coding Visit Charges Inpatient E&M: 81687 Disch Hosp >30min
[2025-01-07 16:51] LABS: Color, Urine Yellow (Yellow); Glucose, Dipstick Normal (Normal); Ketone-Dipstick Negative (Negative); Leukocyte Esterase-Dipstick Negative /ul (Negative); Nitrite-Dipstick Negative (Negative); Occult Blood-Urine Negative /ul (Negative); Protein-Dipstick 30 mg/dl (Negative); Specific Gravity, Urine 1.025 (1.002-1.030); Urine Bilirubin Dipstick Negative (Negative); Urine Clarity Turbid (Clear); Urine Urobilinogen Normal (Normal)
--- NOTE | 2025-01-07 17:09 | NURSING ---
called in and spoke to this nurse. Upset regarding plan of care to discharge patient as patient is still in pain. Dr. Carrion notified and plan is to discharge patient with outpatient follow up with GI.
[2025-01-07 20:48] LABS: Red Blood Cells-Urine 0-5 SEEN /hpf (0-5); Squamous Epithelial Cells - UA 0-5 SEEN /hpf (0-5); White Blood Cells 0-5 SEEN /hpf (0-5)
[2025-01-07 20:49] LABS: Amorphous Sediment 4+; Calcium Oxalate Crystals Ur 1+ /hpf (<or=2+)
== END 2025-01-07 17:12 | disposition home or self-care (01) ==
LOC: ED 01-07 01:31 → PCU 01-07 02:03
PROVIDERS: Admitting Provider Internal Medicine; Emergency Provider Emergency Medicine; PCP Family Medicine
DX: I25.110 Atherosclerotic heart disease of native coronary artery with unstable angina pectoris (principal); E78.00 Pure hypercholesterolemia, unspecified; Z68.34 Body mass index [BMI] 34.0-34.9, adult; Z82.49 Family history of ischemic heart disease and other diseases of the circulatory system; R00.2 Palpitations; G43.909 Migraine, unspecified, not intractable, without status migrainosus; E66.811 Obesity, class 1; Z79.899 Other long term (current) drug therapy
CPT/HCPCS: 36415; 71045; 74018; 78452; 80048; 80061; 80307; 81001; 82077; 82962; 83036; 84443; 84484; 85025; 85379; 93005; 93017; 93306; 96372; 96374; 96375; 96376; 99221; 99285; A9500; A4216; G0378; J2405

== ENCOUNTER → 2025-01-25 | Outpatient (CLI) | payer BC, SELFPAY ==
[2025-01-26 00:16] LABS: Amylase 146 U/L (28-100); Lipase 368 U/L (13-75)
== END | disposition home or self-care (01) ==
LOC: MTLAB 16:17
PROVIDERS: PCP Family Medicine
DX: K85.90 Acute pancreatitis without necrosis or infection, unspecified (principal)
CPT/HCPCS: 36415; 82150; 83690

== ENCOUNTER → 2025-01-31 | Outpatient (CLI) | payer BC, SELFPAY ==
[2025-01-31 15:41] LABS: Absolute Lymphocyte Count 1.74 X10^3/uL (0.83-4.51); Absolute Neutrophil Count 2.8 X10^3/uL (2.0-7.7); Basophil# 0.03 X10^3/uL; Basophil% 0.6 % (0-1); Hematocrit 43.3 % (40-54); Hemoglobin 14.7 g/dL (13.0-16.5); Lymphocyte # 1.74 X10^3/ul (0.83-4.51); Lymphocyte % 34.8 % (19-41); Mean Corp Hgb Conc 33.9 g/dL (32-36); Mean Corpuscular Hgb 30.7 pg (27.0-32.0); Mean Corpuscular Volume 90.4 fL (80-94); Mean Platelet Vol. 10.3 fl (6.2-12.0); Monocyte# 0.29 X10^3/uL; Monocyte% 5.8 % (0-10); NRBC Flagged by Analyzer 0 % (0-5); Neutrophil # 2.83 X10^3/uL (2.7-7.7); Neutrophil % 56.6 % (47-70); Platelet Count 229 K/mm3 (150-450); RBC Distribution Width CV 12.7 % (11.6-14.6); RBC Distribution Width SD 42.1 fl (35.1-43.9); Red Blood Count 4.79 M/mm3 (4.6-6.2)
[2025-01-31 16:00] LABS: ALB/GLOB Ratio 1.6 RATIO (0.9-2.4); AST(SGOT) 22 U/L (<=37); Alanine Aminotransfer ALT/SGPT 49 U/L (<=46); Albumin, Serum 4.2 g/dL (3.5-5.0); Alkaline Phosphatase 93 U/L (40-129); Anion Gap 13 (5-15); BUN 12 mg/dL (4-19); BUN/Creat Ratio 11.6 RATIO (10-20); CRP < 3.00 mg/L (0.0-3.0); Carbon Dioxide 21.9 mmol/L (21.0-32.0); Chloride 104 mmol/L (98-108); Creatinine, Serum 1.04 mg/dL (0.70-1.20); EST Glomerular Filtration Rate 85 (>60); Globulin 2.6 g/dL (2.2-4.2); Glucose 109 mg/dL (70-99); Lipase 44 U/L (13-75); Potassium 3.7 mmol/L (3.3-5.1); Protein, Total 6.7 g/dL (5.9-8.4); Sodium Level 138 mmol/L (133-145)
[2025-02-02 04:07] LABS: GGTP 82 IU/L (0-65)
== END | disposition home or self-care (01) ==
LOC: MTLAB 12:32
PROVIDERS: PCP Family Medicine; Referring Provider Family Medicine; Visit Provider Family Medicine
DX: K85.90 Acute pancreatitis without necrosis or infection, unspecified (principal)
CPT/HCPCS: 36415; 80053; 82977; 83690; 85025; 86140

== ENCOUNTER → 2025-02-14 | Outpatient (CLI) | payer BC, SELFPAY ==
[2025-02-14 11:23] LABS: Ammonia 21.9 umol/L (16-60)
[2025-02-14 12:08] LABS: International Normalized Ratio 1.2; Prothrombin Time (Protime)PT. 14.9 SECONDS (11.7-14.9)
[2025-02-14 12:36] LABS: Vitamin B12 327 pg/mL (180-914)
[2025-02-14 12:38] LABS: FOLATES,SERUM (FOLIC ACID) 6.53 ng/mL (4.60-34.80)
[2025-02-14 12:41] LABS: CRP < 3.00 mg/L (0.0-3.0)
[2025-02-19 06:08] LABS: ANTINUCLEAR ANTIBODIES DIRECT Negative (Negative); Beef <0.10 kU/L (Class 0); Chocolate <0.10 kU/L (Class 0); Codfish <0.10 kU/L (Class 0); Corn <0.10 kU/L (Class 0); Egg, Whole <0.10 kU/L (Class 0); Milk (Cow) <0.10 kU/L (Class 0); Mussels <0.10 kU/L (Class 0); Peanut <0.10 kU/L (Class 0); Pork <0.10 kU/L (Class 0); Salmon <0.10 kU/L (Class 0); Shrimp <0.10 kU/L (Class 0); Soybean <0.10 kU/L (Class 0); Tuna <0.10 kU/L (Class 0); Wheat <0.10 kU/L (Class 0)
[2025-02-19 10:08] LABS: Anti-Smooth Muscle ABS 6 Units (0-19); Ceruloplasmin 18.1 mg/dL (16.0-31.0); Endomysial Antibody IgA Negative (Negative); GGTP 38 IU/L (0-65); Immunoglobulin A 199 mg/dL (90-386); t-Transglutaminase IgA <2 U/mL (0-3)
== END | disposition home or self-care (01) ==
LOC: LAB 10:20
PROVIDERS: PCP Family Medicine; Referring Provider Family Medicine; Visit Provider Family Medicine
DX: R19.7 Diarrhea, unspecified (principal); K85.90 Acute pancreatitis without necrosis or infection, unspecified
CPT/HCPCS: 36415; 82140; 82390; 82607; 82746; 82784; 82977; 83516; 84630; 85610; 86003; 86005; 86038; 86140; 86255

== ENCOUNTER → 2025-03-05 | Outpatient (CLI) | payer BC, SELFPAY ==
[2025-03-05 18:04] LABS: Hematocrit 42.8 % (40-54); Hemoglobin 14.7 g/dL (13.0-16.5); Immature Granulocytes Count 0.010 X10^3/uL (0.0-0.0); Mean Corp Hgb Conc 34.3 g/dL (32-36); Mean Corpuscular Volume 92.0 fL (80-94); Mean Platelet Vol. 10.4 fl (6.2-12.0); NRBC Flagged by Analyzer 0 % (0-5); Platelet Count 211 K/mm3 (150-450); RBC Distribution Width CV 13.5 % (11.6-14.6); RBC Distribution Width SD 45.1 fl (35.1-43.9); Red Blood Count 4.65 M/mm3 (4.6-6.2); White Blood Count 5.4 K/mm3 (4.4-11.0)
[2025-03-05 18:36] LABS: AST(SGOT) 31 U/L (<=37); Alanine Aminotransfer ALT/SGPT 31 U/L (<=46); Albumin, Serum 4.5 g/dL (3.5-5.0); Alkaline Phosphatase 90 U/L (40-129); Anion Gap 11 (5-15); BUN 14 mg/dL (4-19); BUN/Creat Ratio 13.8 RATIO (10-20); Calcium,Total 9.4 mg/dL (7.6-11.0); Carbon Dioxide 24.9 mmol/L (21.0-32.0); Chloride 103 mmol/L (98-108); Globulin 2.6 g/dL (2.2-4.2); Glucose 88 mg/dL (70-99); Potassium 4.1 mmol/L (3.3-5.1)
[2025-03-05 18:37] LABS: CRP < 3.00 mg/L (0.0-3.0); Lipase 69 U/L (13-75)
[2025-03-07 04:07] LABS: GGTP 35 IU/L (0-65)
== END | disposition home or self-care (01) ==
LOC: MTLAB 16:48
PROVIDERS: PCP Family Medicine; Referring Provider Family Medicine; Visit Provider Family Medicine
DX: K85.90 Acute pancreatitis without necrosis or infection, unspecified (principal); R19.7 Diarrhea, unspecified
CPT/HCPCS: 36415; 80053; 82977; 83690; 85025; 86140

== ENCOUNTER → 2025-04-11 | Outpatient (CLI) | payer BC, SELFPAY ==
[2025-04-11 18:21] LABS: AST(SGOT) 25 U/L (<=37); Alanine Aminotransfer ALT/SGPT 29 U/L (<=46); Albumin, Serum 4.4 g/dL (3.5-5.0); Alkaline Phosphatase 77 U/L (40-129); Anion Gap 12 (5-15); BUN 15 mg/dL (4-19); BUN/Creat Ratio 19.9 RATIO (10-20); Calcium,Total 9.6 mg/dL (7.6-11.0); Carbon Dioxide 24.1 mmol/L (21.0-32.0); Chloride 103 mmol/L (98-108); Globulin 2.5 g/dL (2.2-4.2); Glucose 86 mg/dL (70-99); Potassium 4.0 mmol/L (3.3-5.1)
[2025-04-11 18:49] LABS: Amylase 34 U/L (28-100); Lipase 57 U/L (13-75)
== END | disposition home or self-care (01) ==
LOC: MFPLAB 15:10
PROVIDERS: PCP Family Medicine; Visit Provider Family Medicine
DX: K85.90 Acute pancreatitis without necrosis or infection, unspecified (principal)
CPT/HCPCS: 36415; 80053; 82150; 83690

== ENCOUNTER → 2025-06-24 | Outpatient (CLI) | payer BC, SELFPAY ==
[2025-06-24 15:55] LABS: AST(SGOT) 28 U/L (<=37); Alanine Aminotransfer ALT/SGPT 24 U/L (<=46); Albumin, Serum 4.7 g/dL (3.5-5.0); Alkaline Phosphatase 76 U/L (40-129); Anion Gap 11 (5-15); BUN 13 mg/dL (4-19); BUN/Creat Ratio 15.3 RATIO (10-20); Calcium,Total 9.7 mg/dL (7.6-11.0); Carbon Dioxide 26.7 mmol/L (21.0-32.0); Chloride 102 mmol/L (98-108); Cholesterol 219 mg/dL (<=200); Globulin 2.8 g/dL (2.2-4.2); Glucose 94 mg/dL (70-99); Low Density Lipoprotein Calc. 119 mg/dL; PSA,Total - Annual Screen 1.93 ng/mL (0.02-4.00); Potassium 4.3 mmol/L (3.3-5.1); Triglycerides 352 mg/dL; Very Low Density Lipoprotein 70 mg/dL (5-40); cholesterol:hdl ratio screen 5.81
[2025-06-24 16:30] LABS: CRP < 3.00 mg/L (0.0-3.0)
== END | disposition home or self-care (01) ==
LOC: MTLAB 11:44
PROVIDERS: PCP Family Medicine; Referring Provider Family Medicine; Visit Provider Family Medicine
DX: E03.9 Hypothyroidism, unspecified (principal); I20.1 Angina pectoris with documented spasm; Z12.5 Encounter for screening for malignant neoplasm of prostate; K85.90 Acute pancreatitis without necrosis or infection, unspecified
CPT/HCPCS: 36415; 80053; 80061; 84153; 84439; 84443; 86140; G0103